=== PATIENT | male | born 1980 | race Caucasian/White ===

== ENCOUNTER 2017-04-20 23:40 | Inpatient (IN) | payer BC ==
[~2017-04-20] VITALS: Ht 188 cm; Wt 83.0 kg
[2017-04-21] VITALS (8 sets, daily range): BP systolic 144–155; BP diastolic 82–112
--- NOTE | 2017-04-21 | NUR ---
ms/rn opening notes RECEIVED DIRECT ADMIT PATIENT FROM [facility]. DR WHATLEY, PATIENT IS A 36 YO MALE WHO WAS ADMITED/TO SO FOR SURGERY PROCEDURE DUE TO LEFT FOREARM PSEUDO ANEURISM REPAIR. ,PATIENT, AL;ERT, ORIENTED X3 DROWSY BUT COMPLAINING OF SEVERE PAIN IN LEFT ARM. SPIRAL TUBE WINDER HELPER Capri SANTOYO/ ORDER TO GIVE MORPHINE 2MG PRN Q 4HRS. PROVIDE COMFORT CARE,BELONGINGS CHECK, ROOM ORIENTATION, BODY ASSESS, REFUSE TO HAVE PHOTO TAKEN AT THIS TIME, .
[2017-04-21] MEDS ORDERED: MORPHINE SULFATE INJ 2 MG/ML DISP.SYRIN IV PRN ×2 (01:00→22:00)
[2017-04-21] MEDS ORDERED: ACETAMINOPHEN 325 MG TABLET PO PRN (01:00)
[2017-04-21] MEDS ORDERED: Z GUARD REMEDY 2 OZ OINT TP PRN (01:00)
[2017-04-21] MEDS ORDERED: HYDROCODONE/APAP 5/325MG 1 EACH TABLET PO PRN (01:00)
[2017-04-21] MEDS ORDERED: MAGNESIUM HYDROXIDE 30 ML UDC PO PRN (01:00)
[2017-04-21 01:34] LABS: BASOPHILS # (AUTO) 0.1 /CMM (0.0-0.2); BASOPHILS % (AUTO) 0.9 % (0.0-2.0); EOSINOPHILS # (AUTO) 0.1 /CMM (0.0-0.7); EOSINOPHILS % (AUTO) 0.6 % (0.0-6.0); HEMATOCRIT 34 % (39-51); HEMOGLOBIN 11.3 g/dL (13.5-17.5); LYMPHOCYTES # (AUTO) 1.7 /CMM (0.8-4.8); LYMPHOCYTES % (AUTO) 19.8 % (20.0-44.0); MEAN CORPUSCULAR HEMOGLOBIN 31 PG (26.0-33.0); MEAN CORPUSCULAR HGB CONC 34 g/dl (31.0-36.0); MEAN CORPUSCULAR VOLUME 92 fL (80-96); MONOCYTES # (AUTO) 0.6 /CMM (0.1-1.30); MONOCYTES % (AUTO) 6.6 % (2.0-12.0); NEUTROPHILS % (AUTO) 72.1 % (43.0-81.0); PLATELET COUNT (AUTO) 164 /CMM (150-450); RED BLOOD CELL COUNT(AUTO) 3.66 MIL/uL (4.5-6.0); WHITE BLOOD COUNT (AUTO) 8.4 K/uL (4.3-11.0)
[2017-04-21] MEDS ORDERED: MORPHINE SULFATE INJ 2 MG/ML DISP.SYRIN ONE (01:43)
[2017-04-21 01:48] LABS: INR 1.07 (0.87-1.13); PROTHROMBIN TIME 11.5 SECS (9.5-12.7)
[2017-04-21 01:49] LABS: ALBUMIN 2.8 g/dL (3.4-5.0); BILIRUBIN,TOTAL 0.8 mg/dL (0.2-1.0); CALCIUM, SERUM 8.1 mg/dL (8.5-10.1); MAGNESIUM 1.7 mg/dL (1.8-2.4); PHOSPHORUS 1.6 mg/dL (2.5-4.9); POTASSIUM 3.4 mmol/L (3.5-5.1); TOTAL PROTEIN, SERUM 7.3 g/dL (6.4-8.2)
--- NOTE | 2017-04-21 01:51 | NUR ---
MS/RN NOTES PAIN LEVEL 9/10 ON LEFT ARM , MORPHINE 2MG IVGIVEN
[2017-04-21] MEDS: IV NS 0.9% 1,000 ML IV PRN ×2 (01:52→21:36)
[2017-04-21 02:16] LABS: THYROID STIMULATING HORMONE 2.875 uIU/mL (0.358-3.74)
[2017-04-21] MEDS ORDERED: HYDR2TAB35 IVP ×2 (02:41)
[2017-04-21] MEDS ORDERED: PANT40TA2 PO (02:41)
[2017-04-21] MEDS ORDERED: ACET-868 PO (02:41)
[2017-04-21] MEDS ORDERED: LORA2VIA11 IVP (02:41)
[2017-04-21] MEDS ORDERED: ONDA4SOL2 IVP (02:41)
--- NOTE | 2017-04-21 02:41 | NUR ---
MS/RN NOTES PATIENT PAIN STILL SEVERE, COMPALAINED MORPHINME NOT EFFECTIVE. REPORTED TO MD, ORDERED TO GIVE DILAUDID 1MG IV EVERY 2 HOURS PRN AND ATIVAN 1 MG IV EVERY 6 HRS. ORDER CARRIED OUT.MD WAS INFORMED REGARDING LATEST LAB RESULT REPORTED MAGNESIUM LEVEL 107 AND POTASSIUM AT 3.4 MD STATED WILL REVIEW LAB FIRST
[2017-04-21] MEDS ORDERED: HYDROMORPHONE 1 MG/1 ML DISP.SYRIN ONE ×3 (02:47→06:01)
[2017-04-21] MEDS: HYDROMORPHONE 1 MG/1 ML DISP.SYRIN IV PRN ×7 (02:49→15:44)
--- NOTE | 2017-04-21 02:54 | NUR ---
MS/RN NOTES DILAUDID 1MG IV SYRINGE GIVEN FOR PAIN MGMT NOT EFFECTIVE W/ MORPHINE.
[2017-04-21] MEDS ORDERED: LORAZEPAM INJ 2 MG/ML VIAL IV PRN (03:00)
[2017-04-21] MEDS ORDERED: PIPERACILLIN /TAZOBACTAM 3.375 G VIAL IV ONE (03:57)
[2017-04-21] MEDS: PIPERACILLIN /TAZOBACTAM 3.375 G in IV D5W 50 ML IV SCH ×3 (05:01→19:57)
--- NOTE | 2017-04-21 05:53 | NUR ---
MS/RN NOTES PATIENT COMPLAINING OF PAIN AND NOT RELIEVED BY CURRENT DOSE, INFORMED MD AND MD ORDER FOR ONLY 1X TO GIVE ADDITIONAL 0.5MG DILAUDID. PATIENT WAS INFORMED. LEFT ARM SITE OBSERVE SOME BLEEDING, CLEANSE SITE W/ NS, COVER W/ STERILE ABDOMINAL PAD AND TAPE. MONITORING FOR ANY BLEEDING.
[2017-04-21] MEDS ORDERED: HYDROMORPHONE 1 MG/1 ML DISP.SYRIN IV PRN (06:00)
--- NOTE | 2017-04-21 06:44 | NUR ---
MS/RN CLOSING NOTES PATIENT IN BED, SEMI RAY POSITON..ABLE TO SLEEEP FOR COUPLE OF HOURS. PAIN MEDICATION PROVIDED AND NO S/S OF GUARDING OR GRIMACE. ON NPO DUE TO SURGERY TODAYFOR PSEUDOANEURISM REPAIR. WILL CONTINUE TO PROVIDE CARE AND ENDORSE TO AM RN REGARDING PLAN OF CARE.
--- NOTE | 2017-04-21 06:54 | NUR ---
WAIT STAFF WOUND CARE RECEIVED CONSULT. AT THIS TIME PER NURSING STAFF PATIENT IS SCHEDULED FOR SURGERY. WOUND CARE WILL DEFER TO SURGICAL TEAM AT THIS TIME WITH WOUND CARE ASSIST IF REQUESTED. PER NURSING STAFF PATIENT IS AMBULATORY AND CONTINENT AT THIS TIME.
--- NOTE | 2017-04-21 07:05 | NUR ---
MS/RN NOTES MEDICATION FOR DILAUDID 0.5MG 1X ADDITIONAL TO GIVE ON 1MG SYRINGE WAS WASTED W/ WITNESS BY CHARGE NURSE Marquita. INFORM PHARMACY AND EDUCATOR REGARDING OMNICELL USE. AND DISPOSAL.
--- NOTE | 2017-04-21 08:36 | NUR ---
RN OPENING NOTES RECEIVED PATIENT A/OX4. PATIENT COMPLAINING OF SEVERE PAIN 06/06. PATIENT HAS LEFT ARM CELLULITIS. PATIENT MOTHER AT BEDSIDE AT THIS TIME. RESPIRATIONS APPEAR EVEN AND UNLABORED. NO S/S OD SOB. PATIENT NPO. PATIENT EXPECTED TO HAVE PROCEDURE TODAY L BRACHIAL PSUEDOANEURYSM REPAIR. CONSENT WILL BE OBTAINED. BED LOCKED IN THE LOWEST POSITION WITH SIDE RAILS UP X2. CALL LIGHT WITHIN REACH. ALL NEEDS TO BE MET DURING SHIFT. WILL CONTINUE TO MONITOR AND ASSESS PATIENT.
[2017-04-21] MEDS ORDERED: POTASSIUM CHLORIDE 20 MEQ TAB.PRT.SR PO ONE (09:00)
--- NOTE | 2017-04-21 09:16 | NUR ---
RN NOTES PATIENT FEBRILE. TEMPERATURE REPORTED TO BE 101.5 PER AUDIT DIRECTOR STEWART. WILL MEDICATE PATIENT WITH TYLENOL 650 FOR FEVER CONTROL.
[2017-04-21] MEDS ORDERED: CELLULOSE,OXIDIZED 1 EACH EACH MC ONE (09:36)
[2017-04-21] MEDS: Potassium Phosphate meq 11 MEQ in IV D5W 100 ML IV SCH ×2 (10:17→13:35)
[2017-04-21] MEDS: VANCOMYCIN 1 GM in IV D5W 250 ML IV SCH ×2 (10:17→16:41)
--- NOTE | 2017-04-21 10:36 | NUR ---
PATIENT EXPRESSING SUICIDAL IDEATION. CALLED DR. CALVILLO. DISCUSSED PATIENT PLAN OF CARE. VERBAL ORDERS FOR ATIVAN 1MG Q3HR, CRISIS TEAM AND PSYCH EVALUATION. WILL CARRY OUT ORDERS. WILL CONTINUE TO MONIOTR PATIENT.
[2017-04-21] MEDS: LORAZEPAM INJ 2 MG/ML VIAL IV PRN ×2 (11:03→22:27)
--- NOTE | 2017-04-21 11:10 | NUR ---
RN NOTES ATIVAN 1MG GIVEN PER ORDERS. PATIENT AWAKE IN BED. WILL CONTINUE TO MONITOR PATIENT.
--- NOTE | 2017-04-21 11:30 | NUR ---
RN NOTES PATIENT TEMPERATURE REASSESSED. PATIENT AFEBRILE AT THIS TIME. TEMP READING 98.5. WILL CONTINUE TO MONITOR PATIENT. Addendum: 04/21/17 at 1131 by BHAVESH WEST RN Amended: Links added.
[2017-04-21] MEDS ORDERED: ANESTHESIA TRAY IN PYXIS 1 EA TRAY MC ONE ×2 (11:43→21:14)
[2017-04-21] MEDS: Magnesium 1GM/D5W 100ML PREMIX 100 ML IV SCH ×2 (11:43→13:35)
[2017-04-21] MEDS ORDERED: FEE PK DOSING 1 MIN EA MC ONE (12:11)
--- NOTE | 2017-04-21 12:19 | NUR ---
RN NOTES PATIENT RESTING IN BED QUIETLY AT THIS TIME. MOTHER AT BEDSIDE AT THIS TIME. WILL CONTINUE TO MONITOR PATIENT.
--- NOTE | 2017-04-21 12:32 | NUR ---
RN NOTES SEEN AND EVALUATED BY DR VEGA, PER DR. VEGA NO NEED FOR CRISIS TEAM EVALUATION AT THIS TIME, PT TO HAVE SITTER AND CONTINUED MONITORING, WILL FOLLOW UP WITH DR. CALVILLO FOR FURTHER NEEDS
--- NOTE | 2017-04-21 16:47 | NUR ---
RN NOTES PATIENT PICKED UP BY OR TEAM FOR L BRACHIAL PSUEDOANEURYSM REPAIR, POSSIBLE BILATERAL LEG VEIN HARVEST. PATIENT PICKED UP IN STABLE CONDITION. PATIENT RECEIVING VANCOMYCIN AT THIS TIME AND WILL BE CONTINUED IN OR.
[2017-04-21] MEDS ORDERED: MEPERIDINE HCL/PF 50 MG/ML DISP.SYRIN ONE (17:12)
[2017-04-21] MEDS ORDERED: FENTANYL PF 250MCG/5ML AMPUL ONE ×2 (17:12→18:01)
[2017-04-21] MEDS ORDERED: SUCCINYLCHOLINE CHLORIDE 20 MG/ML VIAL ONE (17:13)
[2017-04-21] MEDS ORDERED: MIDAZOLAM HCL 2 MG/2ML VIAL ONE (17:13)
[2017-04-21] MEDS ORDERED: ROCURONIUM BROMIDE 50 MG/5 ML ONE ×2 (17:13→20:05)
[2017-04-21] MEDS ORDERED: FAMOTIDINE/PF INJ 20 MG/2 ML VIAL IV ONE (17:14)
[2017-04-21] MEDS ORDERED: HEPARIN SODIUM, PORCINE 1,000 UNIT/ML VIAL ONE (17:15)
[2017-04-21] MEDS ORDERED: LIDOCAINE 0.5% HCL 50 ML VIAL ONE (17:15)
[2017-04-21] MEDS ORDERED: CELLULOSE,OXIDIZED 1 PKT EACH MC ONE (17:16)
--- NOTE | 2017-04-21 17:23 | NUR ---
MS/RN CLOSING/TRANSFER NOTES CONTINUATION OF CARE REPORT GIVEN TO MANAGER BEHAVIORAL SHELBY. PATIENT CURRENTLY IN OR FOR L BRACHIAL PSEUDOANEURYSM REPAIR WITH POSSIBLE BILATERAL LEG VEIN HARVEST. PATIENT SENT IN STABLE CONDITION. PATIENT TO BE TRANSFERRED TO ICU 257 AFTER PROCEDURE.
--- NOTE | 2017-04-21 17:24 | NUR ---
ICU/RN REPORT - [facility] [place] RO[place] 257 REPORT RECEIVED FROM NURSE ZAMORANO. PT IN OR FOR LEFT ARM PSUEDOANEURYSM REPAIR WITH POSSIBLE BILATERAL LEG VEIN HARVEST BEING PERFORMED BY DR. PEREZ. PT TO BE ADMITTED POST SURGERY IN ICU.
[2017-04-21] MEDS ORDERED: FENTANYL PF 100MCG/2ML AMPUL ONE ×2 (18:25→20:47)
[2017-04-21] MEDS ORDERED: HYDROMORPHONE INJ 2 MG/ML DISP.SYRIN ONE (18:25)
[2017-04-21] MEDS ORDERED: BACITRACIN 50000 UNITS/VIAL ONE (19:13)
--- NOTE | 2017-04-21 19:16 | NUR ---
ICU/RN REPORT TO PMN NURSE PT HAS NOT ARRIVED FROM OR AT THIS TIME. REPORT GIVEN TO PM NURSE.
[2017-04-21] MEDS ORDERED: PAPAVERINE HCL 30 MG/ML 10 MLVIAL IV ONE ×2 (19:21→20:06)
--- NOTE | 2017-04-21 19:40 | NUR ---
DRIP PUMPER: OR NURSE TOOK ZOSYN TO SURGERY AND SAID THEY WILL ADMINISTER IT THERE.
[2017-04-21] MEDS ORDERED: HYDROMORPHONE 2 MG/1 ML SDV ONE (20:02)
--- NOTE | 2017-04-21 21:05 | NUR ---
DOOR ATTENDANT: RECEIVED PT FROM O.R. FOR S/P LEFT BRACHIAL ARTERY PSEUDO ANEURYSM REPAIR WT LEFT FEMORAL VEIN HARVEST. ALERT AND AWAKE WT RESTLESSNESS, C/O PAIN ON SURGICAL SITE (05/06). ON 6L 02 VIA FACE MASK. SURGICAL DRESSINGS ON LEFT ARM AND LEFT FEMORAL INTACT WT NO ACTIVE BLEEDING. SAFETY PRECAUTION NOTED. WILL CONTINUE TO MONITOR.
[2017-04-21] MEDS: MAG HYDROX/AL HYDROX/SIMETH 30 ML UDC PO PRN (21:35)
[2017-04-21] MEDS ORDERED: MORPHINE SULFATE INJ 4 MG/ML DISP.SYRIN ONE (21:50)
[2017-04-21 21:59] LABS: BASOPHILS % (AUTO) 0.2 % (0.0-2.0); EOSINOPHILS % (AUTO) 0.2 % (0.0-6.0); HEMATOCRIT 31 % (39-51); HEMOGLOBIN 10.5 g/dL (13.5-17.5); LYMPHOCYTES # (AUTO) 1.7 /CMM (0.8-4.8); LYMPHOCYTES % (AUTO) 14.5 % (20.0-44.0); MEAN CORPUSCULAR HEMOGLOBIN 31 PG (26.0-33.0); MEAN CORPUSCULAR HGB CONC 34 g/dl (31.0-36.0); MEAN CORPUSCULAR VOLUME 91 fL (80-96); MONOCYTES # (AUTO) 0.5 /CMM (0.1-1.30); NEUTROPHILS # (AUTO) 9.6 /CMM (1.8-8.9); NEUTROPHILS % (AUTO) 81.1 % (43.0-81.0); PLATELET COUNT (AUTO) 194 /CMM (150-450); RDW COEFFICIENT OF VARIATION 14.1 (11.5-15.0); RED BLOOD CELL COUNT(AUTO) 3.38 MIL/uL (4.5-6.0); WHITE BLOOD COUNT (AUTO) 11.8 K/uL (4.3-11.0)
[2017-04-21] MEDS ORDERED: NALOXONE HCL 0.4 MG/ML AMPUL IV PRN (22:00)
[2017-04-21] MEDS ORDERED: MORPHINE SULFATE 30 MG in IV NS 0.9% 28 ML, PCA TOTAL VOLUME 1 BAG IV PRN ×3 (22:00)
[2017-04-21] MEDS ORDERED: MORPHINE SULFATE INJ 4 MG/ML DISP.SYRIN IV PRN (22:00)
[2017-04-21] MEDS ORDERED: IV NS 0.9% 1,000 ML IV PRN (22:00)
[2017-04-21 22:11] LABS: CALCIUM, SERUM 7.5 mg/dL (8.5-10.1); CREATININE 0.6 mg/dL (0.6-1.3); MAGNESIUM 1.8 mg/dL (1.8-2.4); PHOSPHORUS 2.8 mg/dL (2.5-4.9); POTASSIUM 3.9 mmol/L (3.5-5.1)
[2017-04-21] MEDS: ONDANSETRON HCL/PF 4 MG/2 ML VIAL IVP PRN (22:26)
--- NOTE | 2017-04-21 22:33 | NUR ---
BACKGROUND INVESTIGATOR: ATIVAN AND ZOFRAN GIVEN FOR AGITATION AND M/B RESTLESSNESS, REMOVING ELECTRODES, F/C AND NAUSEA. F/C REMOVED TO PREVENT FURTHER TRAUMA. FAMILY AT BEDSIDE. WILL CONTINUE TO MONITOR. SAFETY PRECAUTION NOTED.
--- NOTE | 2017-04-21 22:45 | NUR ---
UNDERWRITING SALES REPRESENTATIVE: ELISSA SANTOYO, COSMO MADE AWARE THAT PT PULLED OUT ALL ELECTRODES, PULSE 0XIMETER AND F/C HAS BEEN REMOVED WELL. ALSO THREATENS TO PULL OUT A-LINE. FREQUENT MONITORING DONE. FAMILY AT BEDSIDE MADE AWARE. AWAITING FOR PHARMACY FOR MORPHINE DRIP.
[2017-04-22] VITALS (16 sets, daily range): BP systolic 98–173; BP diastolic 63–91
[2017-04-22] MEDS: PIPERACILLIN /TAZOBACTAM 3.375 G in IV D5W 50 ML IV SCH ×4 (00:13→17:08)
--- NOTE | 2017-04-22 01:07 | NUR ---
SPEECH AND LANGUAGE SPECIALIST: CALLED AND NOTIFIED COSMO BOWERS THAT PT CONTINUES TO BE VERY AGITATION. TRIES TO GET OUT OF BED AND WANTS TO GO AMA. SPOKE WT MOTHER ON THE PHONE BUT SHE SAID SHE CANNOT CONTROL HIM AND UNABLE TO GET TO HOSPITAL AT THIS TIME. PT ALSO VERBALIZES THAT THERE'S NO PAIN RELIEF AND WANTS MORE PAIN MEDS LIKE DILAUDID. ELISSA WILBURN SAID HE IS ALREADY TAKING ENOUGH OF MORPHINE DRIP AND SAID TO DC DILAUDID, NORCO AND GIVE ATIVAN 1MG X1 NOW THEN CONTINUE WT ATIVAN 1MG Q3H PRN. NOTED AND CARRIED OUT.
[2017-04-22] MEDS ORDERED: LORAZEPAM INJ 2 MG/ML VIAL ONE (01:18)
[2017-04-22] MEDS ORDERED: LORAZEPAM INJ 2 MG/ML VIAL IV ONE (01:30)
--- NOTE | 2017-04-22 02:10 | NUR ---
EXTRUDER OPERATOR MULTIPLE: PLACED BACK SWENGEL ORDER BY DR. PEREZ FOR TRANSITION FROM MORPHINE DRIP. REASSESSED AFTER GIVEN ATIVAN WT GOOD EFFECT. ASLEEP WT EYES CLOSED, NO AGITATION NOTED AT THIS TIME.
[2017-04-22] MEDS ORDERED: HYDROCODONE/APAP 5/325MG 1 EACH TABLET PO PRN ×2 (02:30→03:00)
--- NOTE | 2017-04-22 03:15 | NUR ---
SENIOR SAS PROGRAMMER: TALIA BRIZUELA WAS INITIATED PT WAS GETTING MORE AGITATED AND STOOD UP AND TRYING TO WALK OUT OF THE ROOM. BROTHER JIM WAS CALLED INSIDE THE UNIT WT SECURITY GUARDS TO TRY TO PACIFY PATIENT.
--- NOTE | 2017-04-22 03:17 | NUR ---
AIR CONDITIONING SERVICE TECHNICIAN: PT WENT BACK TO BED WT BROTHER AND SECURITY GUARDS AT BEDSIDE. TALIA BRIZUELA CALLED OFF AT THIS TIME.
--- NOTE | 2017-04-22 04:00 | NUR ---
VETERINARY TECHNOLOGY INSTRUCTOR: BROTHER JIM AND MOTHER MADDISON AT BEDSIDE. BROTHER ASKED IF HE CAN TAKE HIS BROTHER DOWNSTAIRS FOR A QUICK SMOKE. WAS TOLD PT IS UNDER BED REST PER DOCTOR'S ORDERS. CLOSE MONITORING DONE BETWEEN BROTHER AND PT AT THIS TIME.
--- NOTE | 2017-04-22 04:16 | NUR ---
RN NOTES: PATIENT COMPLAINING OF SEVERE PAIN ON ABDOMEN AND LEFT ARM. PATIENT IS SCREAMING DEMANDING FOR HIGHER DOSE OF PAIN MEDS. MORPHINE GIVEN FOR PAIN ORDERED. PATIENT COMPLAINING "IT IS NOT ENOUGH!" I GET 20 MG OF DILAUDID THAT'S NOT GOING TO WORK. EXPLAINED TO PATIENT RE MEDICATION ORDERS. 419 ATIVAN GIVEN WELL. CALLED TALIA BRIZUELA FOR PATIENT PATIENT GETTING MORE AGGRESSIVE AND DEMANDING. SECURITY IN AND ELECTRIC RAZOR ASSEMBLER IN. PATIENT STILL SCREAMING. ATIVAN GIVEN FOR AGITATION. CONTINUOUSLY MONITORED PATIENT Addendum: 04/23/17 at 0806 by ALVARO OWENS RN WRONG CHARTING; PLEASE DISREGARD
[2017-04-22] MEDS: LORAZEPAM INJ 2 MG/ML VIAL IV PRN ×2 (04:32→18:19)
[2017-04-22] MEDS: ONDANSETRON HCL/PF 4 MG/2 ML VIAL IVP PRN ×2 (04:33→18:13)
[2017-04-22 04:55] LABS: EOSINOPHILS % (AUTO) 0.1 % (0.0-6.0); HEMATOCRIT 32 % (39-51); HEMOGLOBIN 10.8 g/dL (13.5-17.5); LYMPHOCYTES # (AUTO) 0.7 /CMM (0.8-4.8); LYMPHOCYTES % (AUTO) 7.9 % (20.0-44.0); MEAN CORPUSCULAR HEMOGLOBIN 32 PG (26.0-33.0); MEAN CORPUSCULAR HGB CONC 35 g/dl (31.0-36.0); MEAN CORPUSCULAR VOLUME 92 fL (80-96); MONOCYTES # (AUTO) 0.2 /CMM (0.1-1.30); MONOCYTES % (AUTO) 1.7 % (2.0-12.0); NEUTROPHILS # (AUTO) 8.1 /CMM (1.8-8.9); NEUTROPHILS % (AUTO) 90.3 % (43.0-81.0); PLATELET COUNT (AUTO) 218 /CMM (150-450); RDW COEFFICIENT OF VARIATION 13.9 (11.5-15.0); RED BLOOD CELL COUNT(AUTO) 3.44 MIL/uL (4.5-6.0)
[2017-04-22] MEDS ORDERED: VANCOMYCIN 1 GM in IV D5W 250 ML IV SCH (05:00)
[2017-04-22 05:20] LABS: CALCIUM, SERUM 8.1 mg/dL (8.5-10.1); CREATININE 0.8 mg/dL (0.6-1.3); MAGNESIUM 1.9 mg/dL (1.8-2.4); PHOSPHORUS 3.1 mg/dL (2.5-4.9); POTASSIUM 3.9 mmol/L (3.5-5.1)
--- NOTE | 2017-04-22 05:30 | NUR ---
ENGINEERING PROFESSIONALS: PT's BROTHER JIM WENT TO THE STATION AND WANTED TO TAKE SOME 4X4 GAUZE WT HIM AND CHARGE NURSE SAID HE CANNOT AND STARTED GETTING AGGRESSIVE. HE SAID THAT WORK ORDER CLERK SAID IT'S OK FOR HIM TO TAKE SOME. CHARGE NURSE REJI CALLED WORK ORDER CLERK AJAY AND SAID SHE DID NOT SAY HE CAN HAVE SOME GAUZE WT HIM. BROTHER JIM WANTED TO ASK HER FULL NAME SO HE CAN FILE A COMPLAIN. CN SAID SHE CANNOT GIVE HER LAST NAME SO HE THREATENED HER AND TOOK HER PICTURE. SECURITY WAS THEN CALLED AND BROTHER SAID HE JUST DELETED HER PICTURE FROM HIS PHONE, STARTED SCREAMING HE'S GOING TO CALL HIS DIGITAL PUBLISHING SPECIALIST THEN STORMED OUT OF THE ICU. CALLED MOTHER MADDISON AND MADE AWARE OF SITUATION.
--- NOTE | 2017-04-22 06:45 | NUR ---
RENTAL CLERK TOOL AND EQUIPMENT: PT JUST WOKE UP AND STOOD UP FROM BED TO URINATE ON URINAL. STILL COMPLAINING THAT WE ARE NOT ADDRESSING HIS NEEDS RE HIS PAIN. TOLD HIM WE ARE GIVING HIM ALL MEDS ORDERED AND HE SLEPT GOOD FOR PAST 2 HRS. REMAINED NON-COMPLIANT THE WHOLE SHIFT, REFUSED TO GET CLEANED STILL OFF CUPROUS CHLORIDE HELPER AND PULSE OXIMETER. NO SOB NOTED AT THIS TIME. ALL NEEDS MET. WILL ENDORSE TO DAY SHIFT FOR CONTINUITY OF CARE. SAFETY PRECAUTION NOTED AT ALL TIMES.
--- NOTE | 2017-04-22 06:55 | NUR ---
GREENHOUSE ASSISTANT: SPOKE WT MIL PHARMACIST ROSA MCWILLIAMS PULLED OUT AT 2230 THAT ONLY 1MG WAS GIVEN ORDERED AND WASTED 1MG WITNESSED BY INDU VILLALBA.
[2017-04-22] MEDS ORDERED: MORPHINE SULFATE INJ 2 MG/ML DISP.SYRIN IV PRN (09:00)
[2017-04-22] MEDS: MULTIVITAMINS,THERAGRAN 1 UDTAB TABLET PO SCH (09:08)
[2017-04-22] MEDS: ENOXAPARIN SODIUM 40 MG/0.4 ML DISP.SYRIN SQ SCH (09:11)
--- NOTE | 2017-04-22 09:55 | NUR ---
FLUID DYNAMICIST NOTE 0720: Received patient awake. A/Ox3 with episode of shouting and non compliance to care. Refused to place bedside monitor and BP cuff on. A line showing SBP >110's. With c/o 2/10 pain on left arm. On Morphine AGRICULTURE SPECIALIST, patient aware to use pump. With Left arm dressing CDI. Awaiting Surgeon for F/U visit. Patient verbalizing wanting to go home, explaining needed to be seen by MD first. Encouraged to cooperate and be more compliant to care. With 1:1 sitter at bedside. Right radial A line intact. CAROL ANN midline intact. IVF infusing as ordered. Patient also refused O2 supplement, tolerated room air at this time. No respiratory distress, RR >14. 0845: S/E by Dr. Lin, patient verbalizing wanting to go home, still awaiting Sx F/U. 0945: Obtained order to may transfer MS and DC a-line. Patient sleeping at this time and able to arouse easily.
--- NOTE | 2017-04-22 12:59 | NUR ---
FURNITURE POLISHER NOTE Spoke with Dr. Fam via phone, asked if what time can the patient expect to be seen by him, MD said later but no specific time yet. Explained to patient. Made MD aware with order to transfer to [place], said to hold transfer until he see patient. Patient able to tolerate [place] removal.
[2017-04-22] MEDS: MAG HYDROX/AL HYDROX/SIMETH 30 ML UDC PO PRN ×2 (13:08→18:13)
[2017-04-22] MEDS: VANCOMYCIN 1 GM in IV D5W 250 ML IV SCH ×2 (13:59→21:35)
--- NOTE | 2017-04-22 16:15 | NUR ---
ROCK BREAKER NOTE S/E by Dr. Fam, changed left arm dressing and packed with Iodosorb packing. Patient is aware he has to keep hospitalized for few more days for ATB therapy and strict monitoring. said ok for transfer to [facility] [place]
[2017-04-22] MEDS: LACTOBACILLUS RHAMNOSUS GG 1 EACH CAP.SPRINK PO SCH ×2 (17:00→17:07)
--- NOTE | 2017-04-22 17:28 | NUR ---
MANAGER OPERATIONS NOTE 1700: S/E by Dr. Francis, made aware for episode of verbalizing AMA and still with non compliance. 1710: Spoke with Dr. Lin re: patient's request to DC Morphine drip and change to Dilaudid, agreed and also obtained order for Dr Guillory to see patient for pain mgnt, left message to Dr. Guillory's office. Patient aware for the new order.
[2017-04-22] MEDS: HYDROMORPHONE 1 MG/1 ML DISP.SYRIN IV PRN ×2 (17:55→21:36)
--- NOTE | 2017-04-22 19:15 | NUR ---
MS/SLEEVE MAKER; RECEIVED PT FROM ICU VIA WHEELCHAIR ACCOMPANIED BY THE PRINT PRODUCER, MARYJO. PT AWAKE AND ALERT AND ORIENTED. AT THIS TIME PT. IN THHE ROOM STANDING WALKING AROUND. BREATHING NON LABORED. LT BRACHIAL WOUND WITH DRESSING INTACT BUT WITH SOME BLOODY DRAINAGE. LLT ARM IS SWOLLEN. HAS MID LINE X1 LUMEN ON CAROL ANN AND ALSO WITH HL CAROL ANN LOWER THAN THE MIDLINE. PT ENCOURAGED TO STAY IN BED AND REST.BED ON LOWER POSITION AND LOCKED FOR SAFETY. UPPER PART OF BED SIDE RAILS ARE UP ALSO FOR SAFETY. WILL CONTINUE TO MONITOR. CALL LIGHT WITHIN REACH. SITTER PRESENT IN THE ROOM.
--- NOTE | 2017-04-22 19:20 | NUR ---
RN NOTE Transferred patient via wheelchair, accompanied by mother. Endorsed to [facility] for BELLO.
--- NOTE | 2017-04-22 19:20 | NUR ---
/SEVERINO; A MALE VISITOR CAME AND I ASKED WHO HE IS HE SAID HE IS THE FATHER OF THE PT. HIS NAME IS KI AND BROUGHT A BROWN BAG AND I ASKED WHAT IS IN THE BAG AND HE SAID FOOD FOR THE PT. I ASKED IF I CAN CHECKED THE BAG AND HE SAID YES AND WHEN I CHECKED FOOD WHICH CONSISTS OF LOTS OF CRACKERS CHEESE AND A SODA 1 BOTTLE.
--- NOTE | 2017-04-22 19:35 | NUR ---
MS/HAM PUMPER; PT GOT UP AND WENT TO THE BATHROOM AND I ASKED WHAT HE DID HE SAID JUST VOIDING. AND THEN BACK TO BED . NO NAUSEA AND VOMITING AT THIS TIME. NOTED RT FOOT SLIGHT SWOLLEN AND DISCOLORED. I ENCOURAGED THE PT TO KEEP HIS LT ARM ELEVATED WITH PILLOW WHICH HE DID.
--- NOTE | 2017-04-22 19:45 | NUR ---
MS/OCEAN FORWARDER; PT'S FATHER LEFT HOME AND HE TOOK BACK WITH HIM THE BROWN BAG WITH FOOD.
--- NOTE | 2017-04-22 20:00 | NUR ---
MS/CREMATORY OPERATOR; PT INSISTED TO CHANGE THE KERLIX WRAP DRESSING CHANGE ON HIS LT ARM DUE WITH SOME BLOODY DRAINAGE. I INFORMED THE CHARGE NURSE. I JUST RE ENFORCE WITH ABD PAD AND APPLIED WITH KERLIX. PT ASKING IF HE CAN SMOKE. I TOLD THE PT I WILL CHECK WITH CHARGE NURSE. I NOTED PT. HAS A PACK OF CIGARETTE AND A GYM INSTRUCTOR AND I GAVE IT TO THE NURSING STATION TO MARY TO PUT INTO SAFE AND PT AWARE OF IT.
--- NOTE | 2017-04-22 20:10 | NUR ---
MS/LITHOGRAPHIC PHOTOGRAPHER APPRENTICE; PT SHOW TO ME THAT HE HAS DRESSING ON HI LT GROIN INTACT AND DRY.
--- NOTE | 2017-04-22 20:20 | NUR ---
MS/SCHEDULE CLERK; NURSING ASSOCIATE PROFESSOR OF LAW MADE ROUND AND SHE TALKED TO THE PT AND PT VERBALLY RESPONSIVE. PT WAS ASKING THE ASSOCIATE PROFESSOR OF LAW IF HE CAN SMOKE AND THE ASSOCIATE PROFESSOR OF LAW TOLD THE PT NOT TONIGHT SHE SAID TOMORROW AND PT CALM DOWN. AT THIS TIME IN BED WHEN THE ASSOCIATE PROFESSOR OF LAW CAME.
--- NOTE | 2017-04-22 20:25 | NUR ---
MS/LAUNCH OPERATOR; PT GOT OUT OF BED TOOK HIS OWN SODA DRINK ORANGE COLOR AND TOOK SOME AND THE BACK TO BED.
--- NOTE | 2017-04-22 20:50 | NUR ---
MS/PALLIATIVE CARE NURSE PRACTITIONER; PT IN BED WITH HOB AT 90 DEGREES SLEEPING.
--- NOTE | 2017-04-22 21:05 | NUR ---
MS/CUSTOM SHOEMAKER; PT IN BED SLEEPING. BREATHING NON LABORED AND EVEN. WILL CONTINUE TO MONITOR. SITTER PRESENT IN THE ROOM.
--- NOTE | 2017-04-22 21:35 | NUR ---
MS/BONDING MOLDER; PT C/O PAIN ON LT ARM AND LT THIGH WITH PAIN LEVEL 9 /10. RUGBY LEAGUE FOOTBALLER NURSE INFORMED THAT PT WANTS PAIN MED. DILAUDID 1 MG IVP Q3 PRN WAS GIVEN BY THE CHARGE NURSE.
--- NOTE | 2017-04-22 22:00 | NUR ---
MS/RIGGING SUPERVISOR; PT IN BED SLEEPING . BREATHING NON LABORED AND EVEN. SITTER PRESENT IN THE ROOM.CONTINUE TO MONITOR.
--- NOTE | 2017-04-23 | NUR ---
MS/INTERIOR DESIGNER; PT IN BED SLEEPING . BREATHING NON LABORED. WILL CONTINUE TO MONITOR.
[2017-04-23] MEDS: PIPERACILLIN /TAZOBACTAM 3.375 G in IV D5W 50 ML IV SCH ×2 (00:43→05:38)
--- NOTE | 2017-04-23 02:00 | NUR ---
MS/WATER RESOURCE ENGINEER; PT IS SLEEPING IN BED. BREATHING NON LABORED.
--- NOTE | 2017-04-23 02:38 | NUR ---
MS/ADOLESCENT SPECIALIST; PT WOKE UP AND DRUNK SOME ORANGE SODA AND THEN BACK TO SLEEP. CONTINUE TO MONITOR.
[2017-04-23 02:55] VITALS: BP 117/74
--- NOTE | 2017-04-23 02:55 | NUR ---
MS/ORDER FULFILLMENT SPECIALIST; PT WOKE UP C/O PAIN ABDOMEN AND LT ARM SAID WITH PAIN LEVEL 10 . BP RA 117/74 , P 59. I INFORMED THE CN.
[2017-04-23] MEDS: ONDANSETRON HCL/PF 4 MG/2 ML VIAL IVP PRN (03:21)
[2017-04-23] MEDS: HYDROMORPHONE 1 MG/1 ML DISP.SYRIN IV PRN ×3 (03:21→10:02)
--- NOTE | 2017-04-23 03:24 | NUR ---
RN NOTES COMPLAINED OF PAIN AT THE LEFT ELBOW AND NAUSEA AT 9/10. ADMINISTERED DILAUDID 1MG/ML VIA IV PUSH AND ZOFRAN 4MG/2ML VIA IV PUSH. AT 0315. WILL MONITOR FOR EFFECTIVENESS
--- NOTE | 2017-04-23 03:30 | NUR ---
MS/BASEBALL UMPIRE FOR LITTLE LEAGUE; PT. HAS BEEN WALKING IN HIS ROOM BACK AND FORTH RUBBING HIS ABDOMEN AND NOTED PT WITH SKIN TEAR ON HIS LT LOWER LEG.PT SCREAMING AND YELLING SAYING FUCK YOU.KEPT DEMANDING MORE STRONGER PAIN MED. ALSO PT WAS SAYING " LET ME ".
--- NOTE | 2017-04-23 04:00 | NUR ---
MS/DIE FITTER; PT STILL AWAKE WALKING IN THE ROOM SAYING " I WANT TO JUMP OVER THE WINDOW."
--- NOTE | 2017-04-23 04:10 | NUR ---
MS/NETWORK PLANNER; PT WENT TO THE NURSES STATION SCREAMING AND YELLING ASKING FOR MORE PAIN. PT HAS BEEN TOLD THAT PAIN MEDS. WERE ALREADY GIVEN PT VERY AGITATED. INSTRUCTED TO GO,BACK TO HIS ROOM . PPT IS NON COMPLIANT. SECURITY WAS CALLED. THREE SECURITIES CAME AND ALSO THE NURSING LOAN COLLECTOR. EVENTUALLY PT WENT TO HIS ROOM WALKING BACK AND FORTH IN HIS ROOM.
[2017-04-23] MEDS: MORPHINE SULFATE INJ 4 MG/ML DISP.SYRIN IV PRN ×3 (04:16→11:35)
--- NOTE | 2017-04-23 04:16 | NUR ---
RN NOTES: PATIENT COMPLAINING OF SEVERE PAIN ON ABDOMEN AND LEFT ARM. PATIENT IS SCREAMING DEMANDING FOR HIGHER DOSE OF PAIN MEDS. MORPHINE GIVEN FOR PAIN ORDERED. PATIENT COMPLAINING "IT IS NOT ENOUGH!" I GET 20 MG OF DILAUDID THAT'S NOT GOING TO WORK. EXPLAINED TO PATIENT RE MEDICATION ORDERS. 0420 ATIVAN GIVEN WELL. CALLED TALIA BRIZUELA FOR PATIENT PATIENT GETTING MORE AGGRESSIVE AND DEMANDING. SECURITY IN AND SLUDGE CONTROL OPERATOR IN. PATIENT STILL SCREAMING. ATIVAN GIVEN FOR AGITATION. CONTINUOUSLY MONITORED PATIENT
[2017-04-23 04:25] VITALS: BP 112/78
--- NOTE | 2017-04-23 04:25 | NUR ---
MS/CITY BAILIFF; CHARGE NURSE SAID SHE WILL GIVE ATIVAN 1 MG IVP PRN FOR AGITATION.
[2017-04-23] MEDS: LORAZEPAM INJ 2 MG/ML VIAL IV PRN ×3 (04:26→11:20)
--- NOTE | 2017-04-23 05:15 | NUR ---
MS/EMBEDDED FIRMWARE ENGINEER; PT AT THIS TIME SITTING IN BED CALM DOWN A LITTLE BUT STILL MOANING FOR MORE PAIN KRISTA.
[2017-04-23] MEDS: VANCOMYCIN 1 GM in IV D5W 250 ML IV SCH (06:27)
--- NOTE | 2017-04-23 06:41 | NUR ---
MS/TECHNICAL ANALYST; PT SLEPT ON AND OFF. MID LINE ON CAROL ANN INTACT. ALSO PT WITH HL ON RT SUBCLAVIAN. AWAKE AT THIS TIME SITTING IN BED. CONTINUE TO MONITOR. CALL LIGHT WITHIN REACH. WILL ENDORSE TO THE DAY SHIFT NURSE FOR CONTINUITY OF CARE.
--- NOTE | 2017-04-23 07:05 | NUR ---
MS/HARNESS INSPECTOR; PT IN BED AT THIS TIME QUIET AND CALM WITH EYES CLOSED. RESTING. BREATHING NON LABORED. SITTER HAS BEEN PRESENT AT ALL TIMES. WILL CONTINUE TO MONITOR. WILL ENDORSE TO THE DAY SHIFT NURSE.
--- NOTE | 2017-04-23 07:20 | NUR ---
MS RN INITIAL NOTE: RECEIVED PT AWAKE SITING IN BED A&OX3. ON ROOM AIR NO SOB, RESPIRATIONS EVEN AND UNLABORED. LT BRACHIAL DRESSING INTACT W/SOME DRAINAGE NOTED ON DRESSING. LLT ARM IS SWOLLEN. HAS MID LINE X1 LUMEN ON CAROL ANN AND ALSO WITH HL CAROL ANN LOWER THAN THE MIDLINE. REVIEWED CARE PLAN WITH PT, PT VERBALLY UNDERSTOOD. BED LOW, LOCKED WITH CALL LIGHT WITHIN REACH. DENIES SI/HI. ALL NEEDS MET AND ANTICIPATED. 1:1 SITTER AT BEDSIDE. WILL CONTINUE TO MONITOR.
[2017-04-23 07:42] LABS: CALCIUM, SERUM 8.6 mg/dL (8.5-10.1); CREATININE 0.9 mg/dL (0.6-1.3)
--- NOTE | 2017-04-23 08:00 | NUR ---
MS RN NOTE: PATIENT C/O ANXIETY. ATIVAN 1MG/0.5ML INJ VIA IV GIVEN. PATIENT DENIES SI/HI. 1:1 SITTER AT BEDSIDE. WILL CONTINUE TO MONITOR.
--- NOTE | 2017-04-23 08:15 | NUR ---
MS RN NOTE: PATIENT C/O GENERALIZED PAIN 9/10 ADULT PAIN SCALE. MORPHINE SULFATE 4MG/1ML INJ VIA IV GIVEN. PATIENT DENIES SI/HI. 1:1 SITTER AT BEDSIDE. WILL CONTINUE TO MONITOR.
[2017-04-23] MEDS: MULTIVITAMINS,THERAGRAN 1 UDTAB TABLET PO SCH (08:58)
[2017-04-23] MEDS: LACTOBACILLUS RHAMNOSUS GG 1 EACH CAP.SPRINK PO SCH (08:59)
[2017-04-23] MEDS: ENOXAPARIN SODIUM 40 MG/0.4 ML DISP.SYRIN SQ SCH (08:59)
[2017-04-23 09:40] VITALS: BP 154/97
--- NOTE | 2017-04-23 09:40 | NUR ---
MS RN NOTE: VITALS TAKEN BY 1:1 SITTER: BLOOD PRESSURE 154/97, PULSE 63, O2 SAT 96%, ORAL TEMP 98.4, RESPIRATIONS 20, PAIN 9/10 ADULT SCALE. WILL CONTINUE TO MONITOR PATIENT.
--- NOTE | 2017-04-23 09:55 | NUR ---
MS RN NOTE: PATIENT C/O GENERALIZED PAIN 9/10 ADULT PAIN SCALE. DILAUDID 1MG/1ML INJ VIA IV GIVEN ORDERED. PATIENT DENIES SI/HI. 1:1 SITTER AT BEDSIDE. WILL CONTINUE TO MONITOR.
--- NOTE | 2017-04-23 10:00 | NUR ---
MS RN NOTE: PATIENT REFUSED LAB ORDER. 1:1 SITTER AT BEDSIDE. WILL CONTINUE TO MONITOR.
--- NOTE | 2017-04-23 10:20 | NUR ---
MS RN NOTE: PATIENT REQUESTING TO LEAVE AMA. EXPLAINED CONSEQUENCES OF LEAVING AMA AND BENEFITS OF CARE PLAN, BUT PATIENT INSISTS THAT HE LEAVE AMA. PER PATIENT, WOULD LIKE TO GO TO [facility] BECAUSE HE WAS PREVIOUSLY THERE AND THEY WERE MANAGING HIS PAIN. PATIENT ALSO REPORTED THAT HE NOTIFIED HIS MOTHER ABOUT LEAVING AMA AND THAT SHE IS ON HER WAY TO PICK HIM UP. LEFT MESSAGE WITH [facility] TO NOTIFY DR. PEMBERTON OF REQUEST TO AMA. 1:1 SITTER AT BEDSIDE. WILL CONTINUE TO MONITOR.
--- NOTE | 2017-04-23 10:30 | NUR ---
MS RN NOTE: PATIENT AT NURSES STATION RAISING HIS VOICE AND REQUESTING TO LEAVE AMA. PATIENT RETURNED TO HIS ROOM WITH 1:1 SITTER. EXPLAINED CARE PLAN TO PATIENT, BUT PATIENT CONTINUED TO STATE THAT HIS MOM IS ON HER WAY TO PICK HIM UP BECAUSE HE WANTS TO LEAVE AMA.
--- NOTE | 2017-04-23 10:55 | NUR ---
MS RN NOTE: MOTHER CAME TO SEE PATIENT AND BOTH RAISING THEIR VOICE. PATIENT INSISTS TO LEAVE AMA. EXPLAINED CONSEQUENCES OF LEAVING AMA AND NOT FOLLOWING THROUGH WITH CARE PLAN. MOTHER REQUESTED TO SPEAK TO SON ALONE. 1:1 SITTER AT BEDSIDE. WILL CONTINUE TO MONITOR.
--- NOTE | 2017-04-23 11:08 | NUR ---
MED NURSE, left message to re; dressing change orders waiting for returning call back
--- NOTE | 2017-04-23 11:15 | NUR ---
MS RN NOTE: PATIENT C/O FEELING ANXIOUS. ATIVAN 1MG/0.5ML INJ VIA IV GIVEN. PATIENT DENIES SI/HI. SITTER AT BEDSIDE. WILL CONTINUE TO MONITOR.
[2017-04-23] MEDS ORDERED: PANTOPRAZOLE 40 MG TABLET.DR PO SCH ×2 (11:30)
--- NOTE | 2017-04-23 11:30 | NUR ---
MS RN NOTE: PATIENT C/O GENERALIZED PAIN 9/10 ADULT PAIN SCALE. MORPHINE SULFATE 4MG/1ML INJ VIA IV GIVEN ORDERED. PATIENT DENIES SI/HI. 1:1 SITTER AT BEDSIDE. WILL CONTINUE TO MONITOR.
--- NOTE | 2017-04-23 11:40 | NUR ---
MS RN NOTE: DRESSING ON LEFT BRACHIAL CHANGED AND ON LEFT UPPER THIGH. 1:1 SITTER AT BEDSIDE. WILL CONTINUE TO MONITOR.
[2017-04-23] MEDS ORDERED: POTASSIUM CHLORIDE 20 MEQ TAB.PRT.SR PO SCH (12:00)
--- NOTE | 2017-04-23 12:00 | NUR ---
MS STAMP PAD MAKER NOTE: PATIENT REQUESTED TO LEAVE AMA. EXPLAINED CONSEQUENCES OF AMA, BUT PATIENT INSISTED TO LEAVE THE HOSPITAL. PER PATIENT, WANTS TO GO HOME AND THEN GO TO [facility] BECAUSE HE WAS PREVIOUSLY THERE AND THEY MANAGED HIS PAIN. AMA FORM SIGNED. BELONGINGS LIST SIGNED AND ITEMS RETURNED. EDUCATED PATIENT ON S/S TO SEEK MEDICAL ATTENTION. ADVISED TO FOLLOW UP WITH PRIMARY DOCTOR. PATIENT VERBALLY UNDERSTOOD. PATIENT REFUSED ASSISTANCE WITH D/C NEEDS AND EXPLAINED THAT HIS MOTHER WOULD ASSIST HIM. PATIENT AMBULATORY WITH STEADY GAIT AND LEFT WITH MOTHER AND 1:1 SITTER.
== END 2017-04-23 12:20 | disposition left against medical advice (07) | DRG 253 ==
LOC: MED 04-21 00:09 → ICU 04-21 17:02 → MEDSG1 04-22 19:01
PROVIDERS: ADMIT Nurse Practitioner Acute Care; ATTEND Nurse Practitioner Acute Care
DX: I72.1 Aneurysm of artery of upper extremity (principal); L03.114 Cellulitis of left upper limb; K50.90 Crohn's disease, unspecified, without complications; I51.3 Intracardiac thrombosis, not elsewhere classified; E87.6 Hypokalemia; F11.10 Opioid abuse, uncomplicated; F17.210 Nicotine dependence, cigarettes, uncomplicated; F39 Unspecified mood [affective] disorder
CPT/HCPCS: 36415; 80048-TC; 80053-TC; 80061-TC; 80202-TC; 83735-TC; 84100-TC; 84443-TC; 85025-TC; 85610-TC; 86850-TC; 86921-TC; 87070-TC; 87081-TC; 88304-TC; 88305-TC; A4216; A4217; A4606; A6253; A6402; A6403; J0330; J1170; J1644; J1650; J2060; J2175; J2250; J2270; J2370; J2405; J2440; J2543; J2704; J2710; J3010; J3370; J3475; J3490; J7030; J7050; J7060; Z7610

== ENCOUNTER 2019-07-09 09:32 | Emergency (ER) | payer BC ==
[~2019-07-09] VITALS: Ht 175.3 cm; Wt 81.6 kg
[~2019-07-09 09:32] MED LIST: ACET-868 PO; HYDR2TAB35 IVP; LORA2VIA11 IVP; ONDA4SOL2 IVP; PANT40TA2 PO
[2019-07-09] MEDS ORDERED: IV NS 0.9% 1,000 ML BAG IV ONE (10:00)
[2019-07-09 10:14] LABS: BASOPHILS # (AUTO) 0.1 /CMM (0.0-0.2); BASOPHILS % (AUTO) 0.6 % (0.0-2.0); EOSINOPHILS % (AUTO) 1.8 % (0.0-6.0); HEMATOCRIT 33 % (39-51); HEMOGLOBIN 10.2 g/dL (13.5-17.5); LYMPHOCYTES % (AUTO) 34.8 % (20.0-44.0); MEAN CORPUSCULAR HGB CONC 31 g/dl (31.0-36.0); MEAN CORPUSCULAR VOLUME 77 fL (80-96); MONOCYTES # (AUTO) 0.5 /CMM (0.1-1.30); MONOCYTES % (AUTO) 6.3 % (2.0-12.0); NEUTROPHILS # (AUTO) 4.9 /CMM (1.8-8.9); NEUTROPHILS % (AUTO) 56.5 % (43.0-81.0); PLATELET COUNT (AUTO) 129 /CMM (150-450); RED BLOOD CELL COUNT(AUTO) 4.27 MIL/uL (4.5-6.0); WHITE BLOOD COUNT (AUTO) 8.6 K/uL (4.3-11.0)
--- NOTE | 2019-07-09 10:14 | NUR ---
REC'D TO ER VIA EMS OD XANAX AND HEROIN @ 0330 IV STARTED 20 LEFT HAND LABS DRAWN SEN [facility] LAB AWAITING EVALUATION BY ER PROVIDER.
[2019-07-09 10:21] LABS: CREATININE 0.9 mg/dL (0.6-1.3); POTASSIUM 4.2 mmol/L (3.5-5.1)
[2019-07-09 10:26] LABS: ALBUMIN 3.1 g/dL (3.4-5.0); BILIRUBIN,DIRECT 0.1 mg/dL (0.0-0.2); BILIRUBIN,TOTAL 0.3 mg/dL (0.2-1.0); TOTAL PROTEIN, SERUM 8.4 g/dL (6.4-8.2)
[2019-07-09 10:27] LABS: SALICYLATE 1.2 mg/dL (2.8-20.0)
[2019-07-09 10:37] LABS: APPEARANCE,URINE Clear (CLEAR); BILIRUBIN,URINE Negative (NEGATIVE); BLOOD, URINE Negative Ery/uL (NEGATIVE); COLOR,URINE Yellow (YELLOW); KETONES,URINE Negative (NEGATIVE); LEUKOCYTE ESTERASE ,URINE Negative (NEGATIVE); NITRITE, URINE Negative (NEGATIVE); PROTEIN,URINE Negative (NEGATIVE); UGLUCOSE Negative (NEGATIVE); UROBILINOGEN,URINE 0.2 EU/dL (0.2)
[2019-07-09 15:30] VITALS: BP 111/65
--- NOTE | 2019-07-09 16:09 | NUR ---
Patient discharged to home in stable condition. Written and verbal after care instructions given. Patient verbalizes understanding of instruction.
== END 2019-07-09 16:11 | disposition home or self-care (01) ==
LOC: ER 09:36
DX: T42.4X1A Poisoning by benzodiazepines, accidental (unintentional), initial encounter (principal); F17.200 Nicotine dependence, unspecified, uncomplicated; Z88.8 Allergy status to other drugs, medicaments and biological substances; Z79.899 Other long term (current) drug therapy; Y92.89 Other specified places as the place of occurrence of the external cause
CPT/HCPCS: 36415; 80048; 80076; 80305; 80307; 80329; 81001; 85025; 93005; 99284; G0480; J7030; 81000-TC

== ENCOUNTER 2020-05-16 16:01 | Emergency (ER) | payer BC, OTHER ==
[~2020-05-16] VITALS: Ht 188 cm; Wt 83.9 kg
--- NOTE | 2020-05-16 16:15 | NUR ---
EXAMINED BY DR. ROCHE.
--- NOTE | 2020-05-16 16:29 | NUR ---
PATIENT A/OX4, BREATHING EVEN AND UNLABORED, NO SOB NOTED, AMBULATORY WITH STEADY GAIT. ESCORTED BY POLICE.
--- NOTE | 2020-05-16 16:31 | NUR ---
Medically cleared for booking.
[2020-05-16 16:36] VITALS: BP 134/88
== END 2020-05-16 16:37 ==
LOC: ER 16:02
DX: S81.802A Unspecified open wound, left lower leg, initial encounter (principal); S81.801A Unspecified open wound, right lower leg, initial encounter; Z88.8 Allergy status to other drugs, medicaments and biological substances; Z02.89 Encounter for other administrative examinations; Z79.899 Other long term (current) drug therapy; X58.XXXA Exposure to other specified factors, initial encounter; Y93.89 Activity, other specified; Y92.89 Other specified places as the place of occurrence of the external cause; Y99.8 Other external cause status

== ENCOUNTER 2021-09-03 21:31 | Emergency (ER) | payer OTHER ==
[~2021-09-03] VITALS: Ht 188 cm; Wt 83.9 kg
[2021-09-03 21:50] VITALS: BP 108/78
== END 2021-09-03 22:33 ==
LOC: ER 21:32
DX: Z02.89 Encounter for other administrative examinations (principal); Z88.8 Allergy status to other drugs, medicaments and biological substances; Z79.899 Other long term (current) drug therapy

== ENCOUNTER → 2023-11-05 | Emergency (ER) | payer OTHER ==
[~2023-11-05] VITALS: Ht 182.9 cm; Wt 68.0 kg
[~2023-11-05] MED LIST changes: +ONDANSETRON 4 MG TAB.RAPDIS ONE
[2023-11-05] MEDS: ONDANSETRON 4 MG TAB.RAPDIS SL ONE (15:40)
[2023-11-05 15:46] VITALS: BP 154/97; TEMP 98.2; O2SAT 98
== END ==
LOC: ER 15:20
DX: Z02.9 Encounter for administrative examinations, unspecified (principal); R11.0 Nausea; F17.200 Nicotine dependence, unspecified, uncomplicated; Z88.8 Allergy status to other drugs, medicaments and biological substances
CPT/HCPCS: 99283; Q0162